=== PATIENT | female | born 1970 | race Caucasian/White ===

== ENCOUNTER 2020-09-02 15:31 | Emergency (ER) | payer MEDICAID ==
[~2020-09-02] VITALS: Ht 157.5 cm; Wt 105.7 kg
[2020-09-02 15:42] VITALS: Ht 157.5 cm; Wt 105.7 kg
[2020-09-02 17:37] VITALS: BP 181/94
== END 2020-09-02 17:37 | disposition home or self-care (01) ==
LOC: ED 15:31
DX: M79.604 Pain in right leg (principal); R22.41 Localized swelling, mass and lump, right lower limb; L53.9 Erythematous condition, unspecified; Z90.49 Acquired absence of other specified parts of digestive tract
CPT/HCPCS: Q0092